=== PATIENT | male | born 1945 ===

== ENCOUNTER 2018-03-31 07:51 | Day surgery (SDC) | payer MEDICARE ==
[2018-03-31 08:56] VITALS: BMI 33.5
[2018-03-31] MEDS ORDERED: Propofol 10 mg/ml Inj (20 ML) ONE (09:44)
[2018-03-31] MEDS ORDERED: Lactated Ringer's 500 ML IV ONE ×2 (09:45)
[2018-03-31 14:07] VITALS: BP 123/69; PULSE 51; RESP 21; TEMP 97.6; O2SAT 98
== END 2018-03-31 11:20 | disposition home or self-care (01) ==
LOC: C.ENDO 07:51
PROVIDERS: ATTEND Internal Medicine Gastroenterology
DX: K21.0 Gastro-esophageal reflux disease with esophagitis (principal); K29.50 Unspecified chronic gastritis without bleeding; K44.9 Diaphragmatic hernia without obstruction or gangrene
CPT/HCPCS: 43239; 82948; 88305; 88312; 88342; J2704; J7120